=== PATIENT | female | born 1970 | race Caucasian/White ===

== ENCOUNTER → 2019-06-01 | Outpatient (CLI) | payer BC ==
--- NOTE | 2019-06-01 15:34 | XR ---
EXAMINATION TYPE: XR foot complete LT DATE OF EXAM: 06/01/2019 COMPARISON: NONE HISTORY: 49-year-old female plantar heel pain for 6 weeks TECHNIQUE: 3 views FINDINGS: Some subtle bony irregularity along the medial first proximal phalangeal base may represent sequela o f remote injury. Os peroneum is noted. Small posterior calcaneal spur and tiny plantar calcaneal spur . No acute fracture, subluxation, or dislocation. IMPRESSION: Small posterior and tiny plantar calcaneal spurs. No acute osseous abnormality seen.
== END | disposition home or self-care (01) ==
LOC: RADXRYALE 13:42
PROVIDERS: ATTEND Physician Assistant Medical
DX: M77.32 Calcaneal spur, left foot (principal)

== ENCOUNTER → 2020-04-07 | Outpatient (CLI) | payer BC ==
--- NOTE | 2020-04-07 12:54 | XR ---
EXAMINATION TYPE: XR chest 2V DATE OF EXAM: 04/07/2020 COMPARISON: NONE HISTORY: Shortness of breath TECHNIQUE: Frontal and lateral views of the chest are obtained. FINDINGS: Scattered senescent parenchymal changes noted. No evidence for infiltrate. No evidence for atelectasis. Heart size is stable. Mediastinal structures are stable and grossly unremarkable. No evidence for hilar prominence. Degenerative changes dorsal spine. IMPRESSION: 1. No evidence for acute pulmonary disease.
== END | disposition home or self-care (01) ==
LOC: RADXRYALE 11:44
PROVIDERS: ATTEND Physician Assistant Medical
DX: R06.02 Shortness of breath (principal)
CPT/HCPCS: 71046

== ENCOUNTER → 2020-08-23 | Outpatient (CLI) | payer BC ==
--- NOTE | 2020-08-26 09:59 | PE ---
EXAMINATION TYPE: PET CT fusion skull to thigh DATE OF EXAM: 08/23/2020 COMPARISON: Chest x-ray April 07, 2020 HISTORY: Solitary pulmonary nodule. Recent abnormal CT adjacent to heart per patient. TECHNIQUE: Following the intravenous administration of 13.61 mCi of F-18 FDG, whole body images are performed from the skull base to the midthigh. Images are reviewed on the computer in the coronal, a xial, and sagittal planes. Reconstructed rotating images are created on independent workstation and reviewed on the computer. A noncontrast CT is performed in conjunction with the PET scan. SCAN: Initial Scan FINDINGS: SKULL BASE AND NECK: No areas of suspicious hypermetabolic uptake. CHEST, MEDIASTINUM, AND HILAR REGION: No areas of suspicious hypermetabolic uptake. No obvious concer paul nodules or masses. Some respiratory motion artifact degradation limits evaluation for subcentime ter nodules. ABDOMEN AND PELVIS: No areas of abnormal hypermetabolic uptake. No adrenal masses. OSSEOUS STRUCTURES: No abnormal hypermetabolic uptake. OTHER CT: Mild underlying emphysematous change suspected. Small hiatal hernia. Normal-appearing appendix from cecum. Scattered pelvic phleboliths. Uterus surgically absent or marke dly atrophic. Slight scoliotic curvature. IMPRESSION: No suspicious hypermetabolic uptake to suggest malignancy.
== END | disposition home or self-care (01) ==
LOC: RADPETMAIN 07:51
PROVIDERS: ATTEND Internal Medicine Critical Care Medicine
DX: R91.8 Other nonspecific abnormal finding of lung field (principal); J98.59 Other diseases of mediastinum, not elsewhere classified
CPT/HCPCS: 78815; A9552

== ENCOUNTER → 2021-02-02 | Outpatient (CLI) | payer BC ==
--- NOTE | 2021-02-03 04:58 | CT ---
EXAMINATION TYPE: CT chest w con DATE OF EXAM: 02/02/2021 COMPARISON: PET/CT August 23, 2020 HISTORY: Pleurisy. History of lung cancer. CT DLP: 315.5 mGycm. Automated Exposure Control for Dose Reduction was Utilized. TECHNIQUE: CT scan of the thorax is performed following with IV Contrast, patient injected with 100m l mL of Isovue 300. FINDINGS: LUNGS: Mild underlying emphysematous change in the upper lungs. Focal mild linear scarring in the rig ht middle lobe medially. No suspicious focal consolidation or groundglass opacity. No pleural effusio n or pneumothorax seen bilaterally. MEDIASTINUM: There are no greater than 1 cm hilar or mediastinal lymph nodes. No cardiomegaly or pe ricardial effusion is seen. OTHER: Slight S-shaped scoliosis. Small sized hiatal hernia. Nonspecific 9 mm hyperdense focus bundle wrapper ior segment right hepatic lobe favors flash filling hemangioma axial image 60. IMPRESSION: No acute findings are evident.
== END | disposition home or self-care (01) ==
LOC: RADCTMAIN 17:33
PROVIDERS: ATTEND Internal Medicine Critical Care Medicine
DX: R09.1 Pleurisy (principal); Z85.118 Personal history of other malignant neoplasm of bronchus and lung
CPT/HCPCS: 71260; Q9967